=== PATIENT | female | born 1980 | race Caucasian/White ===

== ENCOUNTER 2016-09-02 11:30 | Outpatient (CLI) ==
[2015-07-12 10:56] VITALS: BMI 31.3
[2016-09-02 13:20] LABS: FLU INTERNAL QC INTERNAL QC VALID; RAPID FLU A NEGATIVE (NEGATIVE); RAPID FLU B NEGATIVE (NEGATIVE)
== END 2016-09-02 11:31 | disposition home or self-care (01) ==
LOC: LAB 11:30
PROVIDERS: ATTEND Nurse Practitioner Family
DX: J02.9 Acute pharyngitis, unspecified (principal); R52 Pain, unspecified
CPT/HCPCS: 87651; 87804; 87880

== ENCOUNTER 2016-09-23 19:08 | Emergency (ER) ==
[2016-09-23 19:26] VITALS: TEMP 98.6; BMI 33.6
--- NOTE | 2016-09-23 20:36 | ED.PDOC ---
General ED Provider: Dr. VIOLETTE HARMON Chief Complaint: Tooth Problem Stated Complaint: Patient is a 35 year old female who comes to the ER with right lower molar pain with possible abscess Time Seen by Physician: 20:34 Mode of Arrival: Walk-In Information Source: Patient Primary Care Provider: MOO HANCOCK Nursing and Triage Documentation Reviewed and Agree: Yes EENT Complaint Exam - Dental/Oral Complaint/Exam Mechanism of Injury: No known trauma Onset/Duration: 1 day Symptoms Are: Still present Timing: Constant Initial Severity: Severe Current Severity: Severe Character: Reports: Aching, Throbbing Aggravating: Reports: Heat, Cold, Chewing Alleviating: Reports: None Associated Signs and Symptoms: Reports: Swelling, Foul odor. Denies: Discharge , Fever, Foul taste in mouth Related History: Reports: Previous tooth problem Cardiac Risk Factors: Reports: None Dental/Oral Surgical History: Reports: None Tooth Findings: Present: Gross decay, Gross caries, Abcess Cervical Lymphadenopathy Present: No Facial Swelling Present: No Bleeding Present: No Oropharynx Findings: Absent: Clots, Active bleeding Septal Hematoma: No Foreign Body Present: No Dysphagia Present: No Drooling Present: No Asymmetrical Tonsillar Swelling Present: No Uvula Midline: No Edie-tonsillar Fluctuence: No Trismus Present: No Palatal Petechiae Present: No Scarlatinaform Rash Present: No Differential Diagnoses: Dental Abcess, Dental Caries Review of Systems - Review Of Systems Constitutional: Reports: No symptoms Eyes: Reports: No symptoms Ears, Nose, Mouth, Throat: Reports: Mouth pain, Throat pain Respiratory: Reports: No symptoms Cardiac: Reports: No symptoms GI: Reports: No symptoms : Reports: No symptoms Musculoskeletal: Reports: No symptoms Skin: Reports: No symptoms Neurological: Reports: No symptoms Endocrine: Reports: No symptoms Hematologic/Lymphatic: Reports: No symptoms All Other Systems: Reviewed and Negative Past Medical History - Past Medical History Previously Healthy: Yes Endocrine: Reports: DM 2 Cardiovascular: Reports: None Respiratory: Reports: None Hematological: Reports: None Gastrointestinal: Reports: None Genitourinary: Reports: None Neuro/Psych: Reports: Depression Musculoskeletal: Reports: None Cancer: Reports: None Last Menstrual Period: IUD - Surgical History General Surgical History: Reports: Other (ectopic ) - Family History Family History: Reports: Unknown - Social History Smoking Status: Former smoker Hx Substance Use: No Alcohol Screening: None - Immunizations Tetanus Shot up to Date: No Physical Exam - Physical Exam Appearance: Ill-appearing Ill-appearing: Mild Pain Distress: Severe Eyes: MADIHA, EOMI, Conjunctiva clear ENT: Ears normal, Nose normal, Oropharynx normal Neck: Supple Respiratory: Airway patent, Breath sounds clear, Breath sounds equal, Respirations nonlabored Cardiovascular: RRR, Pulses normal, No rub, No murmur Musculoskeletal: Normal strength, ROM intact, No edema, No calf tenderness Skin: Warm, Dry, Normal color Psychiatric: Anxious Critical Care Note - Critical Care Note Total Time (mins): 0 Course - Course Vital Signs: Temp Pulse Resp BP Pulse Ox 09/23/16 19:09 98.6 F 87 18 150/103 H 98 Departure - Departure Time of Disposition: 07:54 Disposition: HOME SELF-CARE Discharge Problem: Dental abscess, Dental caries Instructions: Dental Caries (ED), Dental Abscess (ED) Condition: Fair Pt referred to PMD for follow-up: Yes (yes ) Additional Instructions: Follow up with Your dentist in 2 days Take medications as prescribed. Prescriptions: Hydrocodone/Acetaminophen [[place] 5-325 Tablet] 1 tab PO Q6HR PRN #12 tablet PRN Reason: PAIN Amoxicillin [Amoxil] 500 mg PO TID #30 capsule Ibuprofen [Motrin] 600 mg PO Q6H PRN #30 tablet PRN Reason: Analgesia Allergies/Adverse Reactions: Allergies mold Allergy (Mild, Verified 09/25/16 10:59) head congestion onions Allergy (Severe, Uncoded 09/23/16 19:17) tingling, mouth swelling eggs Allergy (Mild, Uncoded 09/23/16 19:17) N/V, Headache Pt notified to buy medical alert necklace Home Medications: Ambulatory Orders Levonorgestrel [Mirena] 1 each IY d 12/27/15 Amoxicillin [Amoxil] 500 mg PO TID #30 capsule 09/23/16 Hydrocodone/Acetaminophen [[place] 5-325 Tablet] 1 tab PO Q6HR PRN #12 tablet Ibuprofen [Motrin] 600 mg PO Q6H PRN #30 tablet 09/23/16 Clindamycin HCl 300 mg PO QID #40 capsule 09/25/16 Hydrocodone Bit/Acetaminophen [[place] 5-325] 1 - 2 tab PO Q6HR PRN #20 tablet Disposition Discussed With: Patient, Family
[2016-09-23 20:54] VITALS: BP 127/85
== END 2016-09-23 20:54 | disposition home or self-care (01) ==
LOC: ED 19:08
DX: K04.7 Periapical abscess without sinus (principal); K02.7 Dental root caries
CPT/HCPCS: 99282

== ENCOUNTER 2016-09-25 10:51 | Emergency (ER) ==
[2016-09-25 10:57] VITALS: BP 116/84; TEMP 99.4; BMI 34.7
--- NOTE | 2016-09-25 11:17 | ED.PDOC ---
General ED Provider: Dr. STEPHANIE WOLF JR Chief Complaint: Tooth Problem Stated Complaint: seen this er past week for dental problem-worsened this weekend then onset swelling to right face--pain has increased--contacted dentist but unable to get appt today[ End ]99.4 87 20 97% 116/84 8/10 tooth abscess right lower molar still on amoxicillin right buccal edema firm no LAD. ECTOPIC 2010. CYST REMOVAL 2011 dm depr 2 years--has iud Time Seen by Physician: 11:15 Mode of Arrival: Walk-In Information Source: Patient Exam Limitations: No limitations Primary Care Provider: MOO HANCOCK Nursing and Triage Documentation Reviewed and Agree: No Review of Systems - Review Of Systems Constitutional: Reports: Malaise Eyes: Reports: No symptoms Ears, Nose, Mouth, Throat: Reports: Mouth pain, Mouth swelling Respiratory: Reports: No symptoms Cardiac: Reports: No symptoms GI: Reports: No symptoms : Reports: No symptoms Musculoskeletal: Reports: No symptoms Skin: Reports: No symptoms Neurological: Reports: No symptoms Endocrine: Reports: No symptoms Hematologic/Lymphatic: Reports: No symptoms All Other Systems: Other Past Medical History - Past Medical History Previously Healthy: Yes Endocrine: Reports: None Cardiovascular: Reports: None Respiratory: Reports: None Hematological: Reports: None Gastrointestinal: Reports: None Genitourinary: Reports: None Neuro/Psych: Reports: None Musculoskeletal: Reports: None Cancer: Reports: None Last Menstrual Period: 2 years--has iud - Surgical History General Surgical History: Reports: Unknown - Family History Family History: Reports: Unknown - Social History Smoking Status: Former smoker Hx Substance Use: No Alcohol Screening: None Physical Exam - Physical Exam Appearance: Ill-appearing Ill-appearing: Mild Pain Distress: Mild Eyes: MADIHA, EOMI, Conjunctiva clear ENT: Ears normal, Nose normal (RIGHT LOWER MOLAR TENDER WITH FACIAL EDEMA AND TENDERNESS WITHOUT ERYTHEMA) Neck: Supple Respiratory: Airway patent, Breath sounds clear, Breath sounds equal, Respirations nonlabored Cardiovascular: RRR, Pulses normal, No rub, No murmur GI/: Soft, Nontender, No masses, Bowel sounds normal, No Organomegaly Musculoskeletal: Normal strength, ROM intact, No edema, No calf tenderness Skin: Warm, Dry, Normal color Neurological: Sensation intact, Motor intact, Reflexes intact, Cranial nerves intact, Alert, Oriented Psychiatric: Affect appropriate, Mood appropriate Critical Care Note - Critical Care Note Total Time (mins): 0 Course - Course Vital Signs: Temp Pulse Resp BP Pulse Ox 09/25/16 10:52 99.4 F 87 20 116/84 97 Departure - Departure Time of Disposition: 11:23 Disposition: HOME SELF-CARE Discharge Problem: Dental abscess Instructions: Dental Abscess (ED) Condition: Good Pt referred to PMD for follow-up: Yes (DENTIST) Additional Instructions: antibiotic until gone follow up with dentist inform dentist today of treatment and inform dentist tomorrow of progress Prescriptions: Hydrocodone Bit/Acetaminophen [[place] 5-325] 1 - 2 tab PO Q6HR PRN #20 tablet PRN Reason: pain Clindamycin HCl 300 mg PO QID #40 capsule Allergies/Adverse Reactions: Allergies mold Allergy (Mild, Verified 09/25/16 10:59) head congestion onions Allergy (Severe, Uncoded 09/23/16 19:17) tingling, mouth swelling eggs Allergy (Mild, Uncoded 09/23/16 19:17) N/V, Headache Pt notified to buy medical alert necklace Home Medications: Ambulatory Orders Levonorgestrel [Mirena] 1 each IY d 12/27/15 Amoxicillin [Amoxil] 500 mg PO TID #30 capsule 09/23/16 Hydrocodone/Acetaminophen [[place] 5-325 Tablet] 1 tab PO Q6HR PRN #12 tablet Ibuprofen [Motrin] 600 mg PO Q6H PRN #30 tablet 09/23/16 Clindamycin HCl 300 mg PO QID #40 capsule 09/25/16 Hydrocodone Bit/Acetaminophen [[place] 5-325] 1 - 2 tab PO Q6HR PRN #20 tablet
== END 2016-09-25 11:34 | disposition home or self-care (01) ==
LOC: ED 10:51
DX: K04.7 Periapical abscess without sinus (principal)
CPT/HCPCS: 99282

== ENCOUNTER 2016-10-23 07:12 | Outpatient (CLI) ==
[2016-10-23 07:46] LABS: BASOPHILS # (AUTO) 0.1 K/uL (0-0.2); BASOPHILS % (AUTO) 0.8 % (0.0-3.0); EOSINOPHILS # (AUTO) 0.3 K/ul (0.0-0.7); EOSINOPHILS % (AUTO) 2.5 % (0.0-7.0); HEMATOCRIT 40.6 % (37.0-47.0); HEMOGLOBIN 13.7 g/dl (12.0-16.0); IMMATURE GRANULOCYTE % (AUTO) 0.3 % (0.0-5.0); LYMPHOCYTES % (AUTO) 33.9 (10.0-50.0); MEAN CORPUSCULAR HEMOGLOBIN 28.1 pg (27.0-31.0); MEAN CORPUSCULAR HGB CONC 33.7 (31.8-35.4); MEAN CORPUSCULAR VOLUME 83.2 fl (81.0-99.0); MONOCYTES # (AUTO) 0.6 K/uL (0.4-2.0); MONOCYTES % (AUTO) 5.1 (0-10); NEUTROPHILS # (AUTO) 6.7 K/ul (2.0-6.9); NEUTROPHILS % (AUTO) 57.4; PLATELET COUNT 258 10^3/uL (140-440); RED BLOOD COUNT 4.88 10^6/ul (4.20-5.40); WHITE BLOOD COUNT 11.64 K/ul (4.6-10.2)
[2016-10-23 08:01] LABS: ALANINE AMINOTRANSFERASE 25 U/L (12-78); ALBUMIN 3.5 g/dL (3.4-5.0); ALBUMIN/GLOBULIN RATIO 0.95; ALKALINE PHOSPHATASE 68 U/L (42-98); ASPARTATE AMINO TRANSFERASE 16 U/L (15-37); BLOOD UREA NITROGEN 10 mg/dL (7-18); BUN/CREATININE RATIO 13.15; CALCIUM 8.9 mg/dL (8.2-10.2); CARBON DIOXIDE 25 mmol/L (21-32); CHLORIDE 105 mmol/L (98-107); CHOL/HDL RATIO 4.7 (4.5-5.5); CHOLESTEROL 189 mg/dL (0-200); CREATININE 0.76 mg/dL (0.60-1.30); GLUCOSE 118 mg/dL (70-110); HDL CHOLESTEROL 40 mg/dL (35-80); SODIUM 136 mmol/L (136-145); TOTAL PROTEIN 7.2 g/dL (6.4-8.2); TRIGLYCERIDES 81 mg/dL (30-150); VLDL CHOLESTEROL 16 mg/dL (2-30)
[2016-10-23 08:02] LABS: BILIRUBIN,TOTAL < 0.10 mg/dL (0.00-1.20)
== END 2016-10-23 07:13 | disposition home or self-care (01) ==
LOC: LAB 07:12
PROVIDERS: ATTEND Nurse Practitioner Family
DX: E11.9 Type 2 diabetes mellitus without complications (principal); E66.9 Obesity, unspecified
CPT/HCPCS: 36415; 80053; 80061; 83036; 85025

== ENCOUNTER 2017-01-05 12:15 | Outpatient (CLI) | END 2017-01-05 12:16 | disposition home or self-care (01) | LOC: LAB 12:15 | PROVIDERS: ATTEND Nurse Practitioner Family | DX: L02.91 Cutaneous abscess, unspecified (principal); L73.9 Follicular disorder, unspecified | CPT/HCPCS: 87070; 87186 ==

== ENCOUNTER 2017-01-09 12:29 | Outpatient (CLI) ==
--- NOTE | 2017-01-09 14:21 | US ---
EXAM: Ultrasound right axilla HISTORY: Cellulitis, abscess, unspecified COMPARISON: None FINDINGS: Ultrasound of the right axilla was performed in the region of clinical concern. In this region, there is a ovoid hypoechoic region measuring 2.2 x 0.5 x 3.9 cm that appears to have a conne ction to the skin. This likely represents phlegmonous change and/or developing abscess, though it i s difficult to determine the the amount of drainable component. There is a region of shadowing vin fact within this area probably representing calcification or debris, though a foreign body would be difficult to entirely exclude, though favored unlikely. IMPRESSION: In the region of clinical concern, right axilla, there is a ovoid hypoechoic region m easuring 2.2 x 0.5 x 3.9 cm that appears to have a connection to the skin. This likely represents p hlegmonous change and/or developing abscess, though it is difficult to determine the the amount of d rainable component. There is a region of shadowing artifact within this area probably representing calcification or debris, though a foreign body would be the difficult to entirely exclude, though fa vored unlikely. Recommend clinical correlation and follow-up..
== END 2017-01-09 12:30 | disposition home or self-care (01) ==
LOC: RAD 12:29
PROVIDERS: ATTEND Nurse Practitioner Family
DX: L02.91 Cutaneous abscess, unspecified (principal); L73.9 Follicular disorder, unspecified
CPT/HCPCS: 76882

== ENCOUNTER 2017-03-18 14:41 | Outpatient (CLI) ==
[2017-03-18 14:54] LABS: BASOPHILS # (AUTO) 0.1 K/uL (0-0.2); EOSINOPHILS # (AUTO) 0.2 K/ul (0.0-0.7); EOSINOPHILS % (AUTO) 1.7 % (0.0-7.0); HEMATOCRIT 39.4 % (37.0-47.0); HEMOGLOBIN 13.3 g/dl (12.0-16.0); IMMATURE GRANULOCYTE % (AUTO) 0.2 % (0.0-5.0); LYMPHOCYTES # (AUTO) 4.1 K/uL (0.60-3.4); LYMPHOCYTES % (AUTO) 37.2 (10.0-50.0); MEAN CORPUSCULAR HEMOGLOBIN 27.5 pg (27.0-31.0); MEAN CORPUSCULAR HGB CONC 33.8 (31.8-35.4); MEAN CORPUSCULAR VOLUME 81.4 fl (81.0-99.0); MONOCYTES # (AUTO) 0.6 K/uL (0.4-2.0); NEUTROPHILS % (AUTO) 54.9; PLATELET COUNT 293 10^3/uL (140-440); RED BLOOD COUNT 4.84 10^6/ul (4.20-5.40); WHITE BLOOD COUNT 10.95 K/ul (4.6-10.2)
[2017-03-18 15:12] LABS: ALBUMIN 3.6 g/dL (3.4-5.0); ALBUMIN/GLOBULIN RATIO 0.92; ANION GAP 14.2; BILIRUBIN,TOTAL 0.25 mg/dL (0.00-1.20); BUN/CREATININE RATIO 14.6; CALCIUM 9.8 mg/dL (8.2-10.2); CHOL/HDL RATIO 4.3 (4.5-5.5); CREATININE 0.89 mg/dL (0.60-1.30); POTASSIUM 4.2 mmol/L (3.5-5.10); TOTAL PROTEIN 7.5 g/dL (6.4-8.2)
--- NOTE | 2017-03-18 16:03 | CT ---
Exam: CT of the abdomen pelvis without intravenous contrast. Comparison: CT pelvis performed on 07/12/2015. CT abdomen pelvis performed on 07/23/2014 Reason for exam: Generalized abdominal pain. FINDINGS: Image interpretation is limited by the lack of intravenous contrast administration. No pleural effusion, or focal consolidation is seen in the partially imaged lung bases. The liver, spleen, pancreas, adrenal glands, and gallbladder appear grossly unremarkable within the limitations of a noncontrasted study. No hydronephrosis, hydroureter, or nephrolithiasis is seen in either kidney. No focal small bowel dilatation or transition point. There is a 6.4 cm periumbilical/right ventral hernia containing both intra-abdominal fat and loops o f bowel without evidence of obstruction. No inflammatory changes are seen within the abdomen or pelvis. Intrauterine device is in place. The bladder appears grossly unremarkable. No suspicious appearing osteoblastic or osteolytic lesions. Impression: 1. No acute inflammatory findings are seen within the abdomen or pelvis. 2. Similar appearing intra-abdominal fat and bowel containing periumbilical/right ventral hernia wi thout evidence of obstruction.
== END 2017-03-18 14:42 | disposition home or self-care (01) ==
LOC: RAD 14:41
PROVIDERS: ATTEND Nurse Practitioner Family
DX: R10.84 Generalized abdominal pain (principal); K43.9 Ventral hernia without obstruction or gangrene; E11.9 Type 2 diabetes mellitus without complications
CPT/HCPCS: 36415; 80053; 80061; 83036; 85025

== ENCOUNTER 2017-06-30 16:41 | Outpatient (CLI) ==
[2017-06-30 16:58] LABS: FLU INTERNAL QC INTERNAL QC VALID; RAPID FLU A NEGATIVE (NEGATIVE); RAPID FLU B NEGATIVE (NEGATIVE)
== END 2017-06-30 16:42 | disposition home or self-care (01) ==
LOC: LAB 16:41
PROVIDERS: ATTEND Nurse Practitioner Family
DX: R05 Cough (principal); R50.9 Fever, unspecified
CPT/HCPCS: 87651; 87804; 87880